=== PATIENT | female | born 1960 | race Caucasian/White ===

== ENCOUNTER 2024-09-07 07:07 | Inpatient (IN) | payer BC ==
[~2024-09-07] VITALS: Ht 167.6 cm; Wt 51.3 kg
[2024-09-07 07:56] LABS: BASOPHILS % 0.9 % (0.0-2.0); EOSINOPHILS % 2.1 % (0.0-5.0); HEMATOCRIT. 28.5 % (36.0-48.0); HEMOGLOBIN. 9.4 g/dL (12.0-16.0); LYMPHOCYTES % 11.6 % (20.0-50.0); MEAN CORPUSCULAR HEMOGLOBIN 31.9 pg (28.0-32.0); MEAN CORPUSCULAR HGB CONC 32.8 g/dL (31.0-37.0); MEAN CORPUSCULAR VOLUME 97.1 fL (81.0-99.0); MEAN PLATELET VOLUME 7.2 fl (7.4-10.4); MONOCYTES % 7.4 % (2.0-8.0); PLATELET 871 x1000/uL (130-400); RED BLOOD CELL COUNT 2.94 mill/uL (4.2-5.4); RED CELL DISTRIBUTION WIDTH 17.2 % (11.6-14.6); WHITE BLOOD COUNT 17.3 x1000/uL (4.5-11.0)
[2024-09-07 08:56] LABS: CHLORIDE 100 mEq/L (98-107); POTASSIUM 4.1 mEq/L (3.5-5.1); SODIUM 135 mEq/L (136-145)
[2024-09-07 08:57] LABS: CARBON DIOXIDE 28 mEq/L (21-32)
[2024-09-07 08:58] LABS: CALCIUM 10.4 mg/dL (8.7-10.4)
[2024-09-07 09:02] LABS: CREATININE 0.4 mg/dL (0.6-1.0)
[2024-09-07 09:03] LABS: GLUCOSE 124 mg/dL (70-105); TROPONIN I HIGH SENSITIVITY 8 ng/L (3.0-34); UREA NITROGEN BLOOD 19 mg/dL (9-23)
[2024-09-07] MEDS ORDERED: LEVOFLOXACIN 750MG PREMIX 150 ML IV ONE (09:15)
[2024-09-07] MEDS ORDERED: PIPERACILLIN/TAZO 3.375G/50ML 50 ML IV ONE (09:45)
[2024-09-07] MEDS: LEVOFLOXACIN 250MG PREMIX 50 ML IV SCH (09:53)
[2024-09-07] MEDS: SODIUM CHLORIDE 0.9% (SEPSIS BOLUS) IV ONE (10:01)
[2024-09-07] MEDS: ONDANSETRON HCL 4MG/2ML INJ IV ONE (10:10)
[2024-09-07] MEDS: MORPHINE SULFATE 4 MG/ML INJ (FOR IV/IM USE) IV STA (10:10)
[2024-09-07] MEDS: VANCOMYCIN 1G PREMIX 200 ML IV ONE (10:11)
[2024-09-07] MEDS: PIPERACILLIN/TAZO 3.375G/100ML IV NR (10:26)
[2024-09-07] MEDS ORDERED: PIPERACILLIN/TAZOBACTAM 3.375 G in DEXTROSE 5% WATER 50 ML IV SCH (11:00)
[2024-09-07] MEDS ORDERED: DOCUSATE SODIUM 100MG CAPSULE PO PRN (11:00)
[2024-09-07] MEDS ORDERED: IPRATROPIUM/ALBUTEROL 0.5-3(2.5)MG/3ML NEB HHN PRN (11:00)
[2024-09-07] MEDS ORDERED: ONDANSETRON HCL 4MG/2ML INJ IV PRN (11:00)
[2024-09-07] MEDS ORDERED: ACETAMINOPHEN 325MG TABLET PO PRN (11:00)
[2024-09-07] MEDS ORDERED: MAGNESIUM/ALUMINUM HYDROXIDE/SIMETHICONE 30ML UDC PO PRN (11:00)
[2024-09-07] MEDS ORDERED: CLONIDINE 0.1MG TABLET PO PRN (11:00)
[2024-09-07] MEDS ORDERED: NALOXONE HCL 0.4MG/ML VIAL IV PRN (11:45)
[2024-09-07] MEDS ORDERED: LEVETIRACETAM 500 MG in SODIUM CHLORIDE 0.9% 100 ML IV SCH (12:00)
[2024-09-07] MEDS: HYDROCODONE/ACETAMINOPHEN 5/325MG TABLET PO PRN (12:29)
[2024-09-07] MEDS ORDERED: GABAPENTIN 250 MG/5 ML PO SCH (13:00)
[2024-09-07] MEDS ORDERED: LEVETIRACETAM 500MG PREMIX 100ML IV ONE (13:00)
[2024-09-07 14:32] LABS: VITAMIN B12 SERUM 1921 pg/mL (211-911)
[2024-09-07 14:48] LABS: FOLIC ACID (FOLATE) SERUM > 20.00 ng/mL (>5.38)
[2024-09-07] MEDS ORDERED: BISACODYL 5MG TABLET PO PRN (15:00)
[2024-09-07] MEDS ORDERED: PANTOPRAZOLE 80 MG in SODIUM CHLORIDE 0.9% 100 ML IV SCH (15:00)
[2024-09-07 15:36] LABS: IRON 47 ug/dL (50-170)
[2024-09-07 15:38] LABS: TOTAL IRON BINDING CAPACITY 260 ug/dl (250-425)
[2024-09-07] MEDS: PIPERACILLIN/TAZO 3.375G/100ML IV SCH (16:00)
[2024-09-07] MEDS: SODIUM CHLORIDE 0.9% 1,000 ML IV SCH (16:54)
[2024-09-07] MEDS: LEVETIRACETAM 500MG PREMIX 100ML IV SCH (16:56)
[2024-09-07] MEDS: PANTOPRAZOLE SODIUM 40 MG/VIAL IV SCH (17:01)
[2024-09-07] MEDS: FERROUS SULFATE 325MG TABLET PO SCH (17:06)
[2024-09-07] MEDS: SUCRALFATE 1G TABLET PO SCH (17:06)
[2024-09-07 17:30] VITALS: BP 127/70; PULSE 130; RESP 20; TEMP 36.418
[2024-09-07] MEDS ORDERED: ACET-2128 MT (17:46)
[2024-09-07] MEDS ORDERED: CARB30DR OP (17:47)
[2024-09-07] MEDS ORDERED: THIJ IM (17:47)
[2024-09-07] MEDS ORDERED: METO25TA6 MT (17:47)
[2024-09-07] MEDS ORDERED: MELA3CAP2 PO (17:47)
[2024-09-07] MEDS ORDERED: ASCO-339 PO (17:47)
[2024-09-07] MEDS ORDERED: PANT40TA51 MT (17:47)
[2024-09-07] MEDS ORDERED: UBID200C37 PO (17:47)
[2024-09-07] MEDS ORDERED: BO1 TP (17:47)
[2024-09-07] MEDS ORDERED: CHRO1000 PO (17:47)
[2024-09-07] MEDS ORDERED: UBID50TA3 PO (17:47)
[2024-09-07] MEDS ORDERED: APIX2.5T MT (17:47)
[2024-09-07] MEDS ORDERED: ONDA-239 PO (17:47)
[2024-09-07] MEDS ORDERED: BIOT5000 MT (17:47)
[2024-09-07] MEDS ORDERED: GLUC1CAP8 PO (17:47)
[2024-09-07] MEDS ORDERED: SILV50CR31 TP (17:47)
[2024-09-07] MEDS ORDERED: TURM500T (17:47)
[2024-09-07] MEDS ORDERED: MIRT-90 MT (17:47)
[2024-09-07] MEDS ORDERED: SENN8.8S8 MT (17:47)
[2024-09-07] MEDS ORDERED: DIPH25CA51 (17:47)
[2024-09-07] MEDS ORDERED: GABA-529 PO (17:47)
[2024-09-07] MEDS ORDERED: SELE200C MT (17:47)
[2024-09-07] MEDS ORDERED: [UNRECOGNIZED DRUG - CODE] PO (17:47)
[2024-09-07] MEDS ORDERED: [UNRECOGNIZED DRUG - CODE] PO (17:47)
[2024-09-07] MEDS ORDERED: FOLI-43 MT (17:47)
[2024-09-07] MEDS ORDERED: ASTA4CAP PO (17:47)
[2024-09-07] MEDS ORDERED: BISA10SU62 RC (17:47)
[2024-09-07] MEDS ORDERED: OXYB5SYR6 PO (17:47)
[2024-09-07] MEDS ORDERED: EZET10TA81 MT (17:47)
[2024-09-07] MEDS ORDERED: UPAD30TA PO (17:47)
[2024-09-07] MEDS ORDERED: VALA500T55 MT (17:47)
[2024-09-07] MEDS ORDERED: LEVE750T10 PO (17:47)
[2024-09-07] MEDS: AZITHROMYCIN 500 MG in DEXT 5% WATER 250 ML IV SCH (18:58)
[2024-09-07 20:00] VITALS: BP 97/58; PULSE 127; RESP 21; TEMP 36.61404; O2SAT 97
[2024-09-07] MEDS: MIRTAZAPINE 15MG TABLET PO SCH (21:47)
[2024-09-07] MEDS ORDERED: MIRTAZAPINE 30MG TABLET PO SCH (22:00)
[2024-09-08] VITALS: BP 103/53; PULSE 86; RESP 20; TEMP 36.28068; O2SAT 100
[2024-09-08] MEDS: VANCOMYCIN 1GM/200ML PMX (BAXTER) IV SCH ×2 (02:06→19:24)
[2024-09-08 04:00] VITALS: BP 97/56; PULSE 126; RESP 19; TEMP 36.44736; O2SAT 98
[2024-09-08 06:02] LABS: CHLORIDE 103 mEq/L (98-107); SODIUM 136 mEq/L (136-145)
[2024-09-08 06:03] LABS: CALCIUM 9.6 mg/dL (8.7-10.4); CARBON DIOXIDE 24 mEq/L (21-32)
[2024-09-08 06:08] LABS: ALBUMIN 3.4 g/dL (3.2-4.8); CREATININE 0.4 mg/dL (0.6-1.0); GLUCOSE 87 mg/dL (70-105); THYROID STIMULATING HORMONE 2.39 uIU/mL (0.55-4.78); TRIGLYCERIDE 242 mg/dL (0-150); UREA NITROGEN BLOOD 13 mg/dL (9-23)
[2024-09-08 06:09] LABS: LDL CHOLESTEROL 67 mg/dL (5-100)
[2024-09-08 06:10] LABS: CHOLESTEROL 138 mg/dL (<200); HDL CHOLESTEROL 21 mg/dL (>65)
[2024-09-08 06:38] LABS: INR 1.1; PARTIAL THROMBOPLASTIN TIME 28.7 sec (23.4-31.0); PROTHROMBIN TIME 11.7 sec (9.6-11.0)
[2024-09-08 07:31] LABS: HEMATOCRIT. 25.6 % (36.0-48.0); MEAN CORPUSCULAR HEMOGLOBIN 31.2 pg (28.0-32.0); MEAN CORPUSCULAR HGB CONC 31.2 g/dL (31.0-37.0); MEAN PLATELET VOLUME 7.7 fl (7.4-10.4); PLATELET 791 x1000/uL (130-400); RED BLOOD CELL COUNT 2.56 mill/uL (4.2-5.4); RED CELL DISTRIBUTION WIDTH 16.4 % (11.6-14.6); WHITE BLOOD COUNT 19.7 x1000/uL (4.5-11.0)
[2024-09-08 08:00] VITALS: BP 107/62; PULSE 116; RESP 20; TEMP 36.55848; O2SAT 97
[2024-09-08 08:27] LABS: DIFFERENTIAL COMMENT 1
[2024-09-08] MEDS ORDERED: PANTOPRAZOLE SODIUM 40 MG/VIAL IV SCH (09:00)
[2024-09-08] MEDS: POLYETHYLENE GLYCOL 3350 (17GM) 1 DOSE PACK PO SCH (11:35)
[2024-09-08] MEDS: LEVOTHYROXINE SODIUM 75MCG TABLET PO SCH (11:35)
[2024-09-08 12:00] VITALS: BP 103/53; PULSE 113; RESP 19; TEMP 36.50292; O2SAT 98
[2024-09-08] MEDS: GABAPENTIN SOLN 300MG/6ML UDC PO SCH (13:00)
[2024-09-08 16:00] VITALS: BP 117/67; PULSE 67; RESP 18; TEMP 36.78072; O2SAT 99
[2024-09-08 17:57] LABS: PLATELET ESTIMATE INCREASED
[2024-09-08 20:00] VITALS: BP 124/60; PULSE 73; RESP 19; TEMP 36.3918; O2SAT 100
[2024-09-08] MEDS: GUAIFENESIN 200MG/10ML SUGAR FREE UDC PO PRN (20:25)
[2024-09-08] MEDS: ACETAMINOPHEN 325MG TABLET PO PRN (20:26)
[2024-09-08] MEDS: ATORVASTATIN CALCIUM 10MG TABLET PO SCH (21:05)
[2024-09-09] VITALS: BP 122/63; PULSE 100; RESP 20; TEMP 36.50292; O2SAT 99
[2024-09-09 04:00] VITALS: BP 126/61; PULSE 110; RESP 20; TEMP 36.28068; O2SAT 99
[2024-09-09 08:00] VITALS: BP 118/68; PULSE 100; RESP 16; TEMP 36.16956; O2SAT 95
[2024-09-09] MEDS ORDERED: LIDOCAINE HCL 1% 10 MG/ML 10ML VIAL ONE (11:25)
[2024-09-09 12:00] VITALS: BP 125/67; PULSE 97; RESP 18; TEMP 36.44736; O2SAT 98
[2024-09-09 16:00] VITALS: BP 130/79; PULSE 89; RESP 20; TEMP 36.33624; O2SAT 97
[2024-09-09 20:00] VITALS: BP 124/73; PULSE 69; RESP 19; TEMP 36.22512; O2SAT 98
[2024-09-09 21:11] LABS: CHLORIDE 106 mEq/L (98-107); POTASSIUM 3.5 mEq/L (3.5-5.1); SODIUM 136 mEq/L (136-145)
[2024-09-09] MEDS: VANCOMYCIN 1GM/200ML PMX (BAXTER) IV SCH (21:11)
[2024-09-09 21:12] LABS: CALCIUM 9.2 mg/dL (8.7-10.4); CARBON DIOXIDE 23 mEq/L (21-32)
[2024-09-09 21:17] LABS: CREATININE 0.4 mg/dL (0.6-1.0); GLUCOSE 128 mg/dL (70-105); UREA NITROGEN BLOOD 7 mg/dL (9-23)
[2024-09-09 21:25] LABS: BASOPHILS % 0.4 % (0.0-2.0); EOSINOPHILS % 8.8 % (0.0-5.0); HEMATOCRIT 21.6 % (36.0-48.0); HEMATOCRIT. 21.6 % (36.0-48.0); LYMPHOCYTES % 5.7 % (20.0-50.0); MEAN CORPUSCULAR HEMOGLOBIN 30.3 pg (28.0-32.0); MEAN CORPUSCULAR VOLUME 97.9 fL (81.0-99.0); MONOCYTES % 5.7 % (2.0-8.0); NEUTROPHILS % 79.4 % (40.0-76.0); PLATELET 638 x1000/uL (130-400); RED BLOOD CELL COUNT 2.21 mill/uL (4.2-5.4); RED CELL DISTRIBUTION WIDTH 16.6 % (11.6-14.6); WHITE BLOOD COUNT 16.1 x1000/uL (4.5-11.0)
[2024-09-09 21:37] LABS: DIFFERENTIAL COMMENT 1
[2024-09-09 21:38] LABS: HEMOGLOBIN 6.7 g/dL (12.0-16.0); HEMOGLOBIN. 6.7 g/dL (12.0-16.0)
[2024-09-09] MEDS: GABAPENTIN 250 MG/5 ML PO SCH (21:41)
[2024-09-10] VITALS (10 sets, daily range): BP systolic 118–159; BP diastolic 66–84; PULSE 58–110; RESP 16–20; TEMP 35.94732–36.6696; O2SAT 96–100
[2024-09-10 08:02] LABS: CARBON DIOXIDE 21 mEq/L (21-32); CHLORIDE 108 mEq/L (98-107); POTASSIUM 3.6 mEq/L (3.5-5.1); SODIUM 139 mEq/L (136-145)
[2024-09-10 08:03] LABS: CALCIUM 9.8 mg/dL (8.7-10.4)
[2024-09-10 08:07] LABS: CREATININE 0.3 mg/dL (0.6-1.0); GLUCOSE 93 mg/dL (70-105)
[2024-09-10 08:08] LABS: UREA NITROGEN BLOOD 5 mg/dL (9-23)
[2024-09-10 08:28] LABS: HEMATOCRIT. 31.7 % (36.0-48.0); HEMOGLOBIN. 10.5 g/dL (12.0-16.0); MEAN CORPUSCULAR HEMOGLOBIN 31.2 pg (28.0-32.0); MEAN CORPUSCULAR VOLUME 94.5 fL (81.0-99.0); MEAN PLATELET VOLUME 7.2 fl (7.4-10.4); PLATELET 601 x1000/uL (130-400); RED BLOOD CELL COUNT 3.35 mill/uL (4.2-5.4); RED CELL DISTRIBUTION WIDTH 17.1 % (11.6-14.6); WHITE BLOOD COUNT 17.5 x1000/uL (4.5-11.0)
[2024-09-10 08:31] LABS: DIFFERENTIAL COMMENT 1
[2024-09-10 20:50] LABS: ANISOCYTOSIS 1+; PLATELET ESTIMATE SLIGHTLY INCREASED
[2024-09-11] VITALS: BP 142/75; PULSE 85; RESP 18; TEMP 36.33624; O2SAT 98
[2024-09-11 04:00] VITALS: BP 148/79; PULSE 96; RESP 18; TEMP 36.16956; O2SAT 98
[2024-09-11] MEDS: VANCOMYCIN 1.25GM PMX (XELLIA) 250 ML IV SCH (06:45)
[2024-09-11 08:00] VITALS: BP 120/74; PULSE 67; RESP 18; TEMP 36.61404; O2SAT 97
[2024-09-11 16:00] VITALS: BP 114/68; PULSE 74; RESP 20; TEMP 36.6696; O2SAT 98
[2024-09-11 20:00] VITALS: BP 127/69; PULSE 106; RESP 18; TEMP 36.78072; O2SAT 99
[2024-09-12] VITALS: BP 143/82; PULSE 110; RESP 18; TEMP 37.00296; O2SAT 97
[2024-09-12] MEDS ORDERED: AMITRIPTYLINE 25MG TABLET PO SCH (01:30)
[2024-09-12] MEDS: AMITRIPTYLINE 25MG TABLET PO SCH (02:04)
[2024-09-12 04:00] VITALS: RESP 18
[2024-09-12] MEDS: PIPERACILLIN/TAZO 3.375G/50ML IV SCH (06:47)
[2024-09-12 08:00] VITALS: BP 156/96; PULSE 116; RESP 18; TEMP 36.05844; O2SAT 97
[2024-09-12 08:33] LABS: CHLORIDE 111 mEq/L (98-107); POTASSIUM 3.3 mEq/L (3.5-5.1); SODIUM 142 mEq/L (136-145)
[2024-09-12 08:34] LABS: CALCIUM 9.5 mg/dL (8.7-10.4); CARBON DIOXIDE 23 mEq/L (21-32)
[2024-09-12 08:39] LABS: GLUCOSE 98 mg/dL (70-105); UREA NITROGEN BLOOD 7 mg/dL (9-23)
[2024-09-12 08:43] LABS: BASOPHILS % 0.6 % (0.0-2.0); EOSINOPHILS % 7.4 % (0.0-5.0); HEMATOCRIT. 30.8 % (36.0-48.0); HEMOGLOBIN. 10.4 g/dL (12.0-16.0); LYMPHOCYTES % 8.6 % (20.0-50.0); MEAN CORPUSCULAR HEMOGLOBIN 31.3 pg (28.0-32.0); MEAN CORPUSCULAR HGB CONC 33.8 g/dL (31.0-37.0); MEAN CORPUSCULAR VOLUME 92.8 fL (81.0-99.0); MEAN PLATELET VOLUME 6.8 fl (7.4-10.4); MONOCYTES % 7.9 % (2.0-8.0); NEUTROPHILS % 75.5 % (40.0-76.0); PLATELET 442 x1000/uL (130-400); RED BLOOD CELL COUNT 3.33 mill/uL (4.2-5.4); RED CELL DISTRIBUTION WIDTH 17.9 % (11.6-14.6); WHITE BLOOD COUNT 18.9 x1000/uL (4.5-11.0)
[2024-09-12 09:51] LABS: CREATININE 0.4 mg/dL (0.6-1.0)
[2024-09-12 12:09] VITALS: BP 128/79; PULSE 109; RESP 18; TEMP 36.61404; O2SAT 98
[2024-09-12] MEDS: HYDROCODONE/ACETAMINOPHEN 5/325MG TABLET PO PRN (13:45)
[2024-09-12 16:00] VITALS: BP 148/83; PULSE 112; RESP 18; TEMP 37.05852; O2SAT 98
[2024-09-12 20:00] VITALS: BP 136/72; PULSE 109; RESP 20; TEMP 36.28068; O2SAT 94
[2024-09-12] MEDS: MELATONIN 3MG TABLET PO SCH (21:26)
[2024-09-13] VITALS: BP 146/80; PULSE 113; RESP 20; TEMP 36.22512; O2SAT 93
[2024-09-13 04:00] VITALS: BP 148/77; PULSE 112; RESP 20; TEMP 36.114; O2SAT 93
[2024-09-13 07:14] LABS: CHLORIDE 109 mEq/L (98-107); POTASSIUM 2.9 mEq/L (3.5-5.1); SODIUM 143 mEq/L (136-145)
[2024-09-13 07:15] LABS: CARBON DIOXIDE 23 mEq/L (21-32)
[2024-09-13 07:20] LABS: CREATININE 0.3 mg/dL (0.6-1.0); GLUCOSE 96 mg/dL (70-105)
[2024-09-13 07:21] LABS: UREA NITROGEN BLOOD 11 mg/dL (9-23)
[2024-09-13 08:00] VITALS: BP 141/84; PULSE 105; RESP 18; TEMP 36.61404; O2SAT 96
[2024-09-13 08:12] LABS: BASOPHILS % 0.7 % (0.0-2.0); HEMATOCRIT. 27.4 % (36.0-48.0); HEMOGLOBIN. 8.9 g/dL (12.0-16.0); LYMPHOCYTES % 8.8 % (20.0-50.0); MEAN CORPUSCULAR HEMOGLOBIN 30.8 pg (28.0-32.0); MEAN CORPUSCULAR HGB CONC 32.6 g/dL (31.0-37.0); MEAN CORPUSCULAR VOLUME 94.5 fL (81.0-99.0); MONOCYTES % 7.6 % (2.0-8.0); NEUTROPHILS % 74.9 % (40.0-76.0); PLATELET 387 x1000/uL (130-400); RED CELL DISTRIBUTION WIDTH 18.1 % (11.6-14.6); WHITE BLOOD COUNT 16.4 x1000/uL (4.5-11.0)
[2024-09-13] MEDS: KCL 20MEQ/100ML PREMIX 100 ML IV SCH (11:19)
[2024-09-13 12:25] VITALS: BP 140/74; PULSE 106; RESP 20; TEMP 36.05844; O2SAT 96
[2024-09-13 15:24] LABS: HEMATOCRIT 31.4 % (36.0-48.0); HEMOGLOBIN 10.2 g/dL (12.0-16.0)
[2024-09-13 16:33] VITALS: BP 148/85; PULSE 115; RESP 18; TEMP 36.44736; O2SAT 95
[2024-09-13 20:00] VITALS: BP 148/83; PULSE 111; RESP 20; TEMP 36.28068; O2SAT 95
[2024-09-13] MEDS: GABAPENTIN SOLN 300MG/6ML UDC PO SCH (21:54)
[2024-09-14] VITALS: BP 157/90; PULSE 107; RESP 20; TEMP 36.16956; O2SAT 100
[2024-09-14 04:00] VITALS: BP 153/95; PULSE 95; RESP 20; TEMP 36.33624; O2SAT 95
[2024-09-14 07:58] LABS: BASOPHILS % 0.6 % (0.0-2.0); EOSINOPHILS % 10.8 % (0.0-5.0); HEMOGLOBIN. 10.2 g/dL (12.0-16.0); LYMPHOCYTES % 10.4 % (20.0-50.0); MEAN CORPUSCULAR HEMOGLOBIN 31.8 pg (28.0-32.0); MEAN CORPUSCULAR VOLUME 93.6 fL (81.0-99.0); MEAN PLATELET VOLUME 7.4 fl (7.4-10.4); MONOCYTES % 7.9 % (2.0-8.0); NEUTROPHILS % 70.3 % (40.0-76.0); PLATELET 390 x1000/uL (130-400); RED CELL DISTRIBUTION WIDTH 17.8 % (11.6-14.6); WHITE BLOOD COUNT 16.3 x1000/uL (4.5-11.0)
[2024-09-14 08:00] VITALS: O2SAT 93
[2024-09-14 08:24] LABS: ALANINE AMINOTRANSFERASE < 7 IU/L (10-49); ALBUMIN 3.1 g/dL (3.2-4.8); ASPARTATE AMINOTRANSFERASE 9 IU/L (<34); BILIRUBIN TOTAL 0.2 mg/dL (0.1-1.0); PROTEIN TOTAL 5.4 g/dL (6.0-8.3)
[2024-09-14 08:42] LABS: BILIRUBIN DIRECT < 0.1 mg/dL (<=3.0)
[2024-09-14] MEDS: PIPERACILLIN/TAZO 3.375G/50ML 50 ML IV SCH (08:50)
[2024-09-14 12:00] VITALS: BP 148/90; PULSE 93; RESP 20; TEMP 36.00288; O2SAT 97
[2024-09-14 12:30] LABS: CHLORIDE 108 mEq/L (98-107); POTASSIUM 3.5 mEq/L (3.5-5.1); SODIUM 141 mEq/L (136-145)
[2024-09-14 12:31] LABS: CALCIUM 9.9 mg/dL (8.7-10.4); CARBON DIOXIDE 25 mEq/L (21-32)
[2024-09-14 12:36] LABS: CREATININE 0.3 mg/dL (0.6-1.0); GLUCOSE 101 mg/dL (70-105); UREA NITROGEN BLOOD 10 mg/dL (9-23)
[2024-09-14 16:00] VITALS: BP 152/90; PULSE 110; RESP 20; TEMP 36.114; O2SAT 98
[2024-09-14 20:00] VITALS: BP 119/89; PULSE 75; RESP 19; TEMP 36.22512; O2SAT 98
[2024-09-14] MEDS: DIPHENHYDRAMINE 50MG/ML VIAL IV PRN (22:44)
[2024-09-15] VITALS (7 sets, daily range): BP systolic 127–172; BP diastolic 55–97; PULSE 60–118; RESP 18–20; TEMP 35.78064–36.50292; O2SAT 93–100
[2024-09-15 17:29] LABS: HEMATOCRIT. 30.2 % (36.0-48.0); HEMOGLOBIN. 9.8 g/dL (12.0-16.0); MEAN CORPUSCULAR HEMOGLOBIN 30.4 pg (28.0-32.0); MEAN CORPUSCULAR HGB CONC 32.4 g/dL (31.0-37.0); MEAN CORPUSCULAR VOLUME 93.6 fL (81.0-99.0); MEAN PLATELET VOLUME 7.9 fl (7.4-10.4); PLATELET 382 x1000/uL (130-400); RED BLOOD CELL COUNT 3.23 mill/uL (4.2-5.4); RED CELL DISTRIBUTION WIDTH 17.6 % (11.6-14.6); WHITE BLOOD COUNT 21.3 x1000/uL (4.5-11.0)
[2024-09-15 17:30] LABS: DIFFERENTIAL COMMENT 1
[2024-09-15 17:43] LABS: CHLORIDE 104 mEq/L (98-107); POTASSIUM 3.6 mEq/L (3.5-5.1); SODIUM 137 mEq/L (136-145)
[2024-09-15 17:44] LABS: CARBON DIOXIDE 25 mEq/L (21-32)
[2024-09-15 17:49] LABS: GLUCOSE 112 mg/dL (70-105); UREA NITROGEN BLOOD 13 mg/dL (9-23)
[2024-09-15 17:53] LABS: CREATININE 0.4 mg/dL (0.6-1.0)
[2024-09-15 20:06] LABS: ANISOCYTOSIS 1+; PLATELET ESTIMATE NORMAL
[2024-09-16 00:10] VITALS: BP_SYST 134; BP_SYST 154; BP_DIAS 74; BP_DIAS 80; PULSE 106; PULSE 107; RESP 20; TEMP 36.22512; TEMP 36.50292; O2SAT 93; O2SAT 97
[2024-09-16 04:00] VITALS: BP 164/92; PULSE 116; RESP 20; TEMP 36.114; O2SAT 100
[2024-09-16 12:41] VITALS: BP 122/68; PULSE 98; RESP 20; TEMP 36.114; O2SAT 96
[2024-09-16] MEDS ORDERED: APIX2.5T MT (15:42)
[2024-09-16] MEDS ORDERED: [UNRECOGNIZED DRUG - CODE] PO (15:42)
[2024-09-16] MEDS ORDERED: MELA3CAP2 PO (15:42)
[2024-09-16] MEDS ORDERED: ASCO-339 PO (15:42)
[2024-09-16] MEDS ORDERED: LEVE750T10 PO (15:42)
[2024-09-16] MEDS ORDERED: METO25TA6 MT (15:42)
[2024-09-16] MEDS ORDERED: MIRT-90 MT (15:42)
[2024-09-16] MEDS ORDERED: GABA-529 PO (15:42)
[2024-09-16] MEDS ORDERED: VALA500T55 MT (15:42)
[2024-09-16] MEDS ORDERED: ATOR10TA PO (15:42)
[2024-09-16] MEDS ORDERED: FOLI-43 MT (15:42)
[2024-09-16] MEDS ORDERED: LEVO75TA7 PO (15:42)
[2024-09-16 16:27] LABS: BASOPHILS % 0.9 % (0.0-2.0); EOSINOPHILS % 8.6 % (0.0-5.0); HEMATOCRIT. 29.8 % (36.0-48.0); HEMOGLOBIN. 9.5 g/dL (12.0-16.0); LYMPHOCYTES % 8.1 % (20.0-50.0); MEAN CORPUSCULAR HEMOGLOBIN 30.2 pg (28.0-32.0); MEAN CORPUSCULAR VOLUME 94.5 fL (81.0-99.0); MONOCYTES % 6.3 % (2.0-8.0); NEUTROPHILS % 76.1 % (40.0-76.0); PLATELET 416 x1000/uL (130-400); RED BLOOD CELL COUNT 3.16 mill/uL (4.2-5.4); RED CELL DISTRIBUTION WIDTH 17.3 % (11.6-14.6); WHITE BLOOD COUNT 18.1 x1000/uL (4.5-11.0)
[2024-09-16 16:33] LABS: CHLORIDE 106 mEq/L (98-107); POTASSIUM 3.6 mEq/L (3.5-5.1); SODIUM 139 mEq/L (136-145)
[2024-09-16 16:34] LABS: CARBON DIOXIDE 23 mEq/L (21-32)
[2024-09-16 16:39] LABS: CREATININE 0.4 mg/dL (0.6-1.0); GLUCOSE 121 mg/dL (70-105)
[2024-09-16 16:40] LABS: UREA NITROGEN BLOOD 13 mg/dL (9-23)
[2024-09-16 16:44] VITALS: BP 137/71; PULSE 75; RESP 18; TEMP 37.16964; O2SAT 96
[2024-09-16 20:00] VITALS: BP 127/79; PULSE 116; RESP 18; TEMP 36.33624; O2SAT 97
[2024-09-17] VITALS (7 sets, daily range): BP systolic 141–150; BP diastolic 78–89; PULSE 48–122; RESP 18–20; TEMP 36.05844–37.39188; O2SAT 95–100
[2024-09-17 06:27] LABS: BASOPHILS % 0.9 % (0.0-2.0); EOSINOPHILS % 10.2 % (0.0-5.0); HEMATOCRIT. 29.5 % (36.0-48.0); LYMPHOCYTES % 8.9 % (20.0-50.0); MEAN CORPUSCULAR HEMOGLOBIN 31.6 pg (28.0-32.0); MEAN CORPUSCULAR HGB CONC 33.9 g/dL (31.0-37.0); MEAN CORPUSCULAR VOLUME 93.1 fL (81.0-99.0); MEAN PLATELET VOLUME 7.9 fl (7.4-10.4); MONOCYTES % 8.2 % (2.0-8.0); NEUTROPHILS % 71.8 % (40.0-76.0); PLATELET 422 x1000/uL (130-400); RED BLOOD CELL COUNT 3.17 mill/uL (4.2-5.4); RED CELL DISTRIBUTION WIDTH 16.7 % (11.6-14.6); WHITE BLOOD COUNT 16.2 x1000/uL (4.5-11.0)
[2024-09-18] VITALS: BP 147/63; PULSE 100; RESP 18; TEMP 36.50292; O2SAT 97
== END 2024-09-17 22:18 | disposition home or self-care (01) | DRG 853 ==
LOC: ER 07:14 → EDBEDREQ 08:06 → 7WST 15:41
PROVIDERS: ADMIT Internal Medicine; ATTEND Internal Medicine
PROC: 02HV33Z Insertion of Infusion Device into Superior Vena Cava, Percutaneous Approach (ICD-10-PCS; 2024-09-09)
PROC: B5181ZA Fluoroscopy of Superior Vena Cava using Low Osmolar Contrast, Guidance (ICD-10-PCS; 2024-09-09)
PROC: B548ZZA Ultrasonography of Superior Vena Cava, Guidance (ICD-10-PCS; 2024-09-09)
PROC: 30233N1 Transfusion of Nonautologous Red Blood Cells into Peripheral Vein, Percutaneous Approach (ICD-10-PCS; 2024-09-10)
PROC: 0JB80ZZ Excision of Abdomen Subcutaneous Tissue and Fascia, Open Approach (ICD-10-PCS; principal; 2024-09-12)
DX: A41.9 Sepsis, unspecified organism (principal); J69.0 Pneumonitis due to inhalation of food and vomit; K92.2 Gastrointestinal hemorrhage, unspecified; E87.1 Hypo-osmolality and hyponatremia; J90 Pleural effusion, not elsewhere classified; M48.54XA Collapsed vertebra, not elsewhere classified, thoracic region, initial encounter for fracture; Z20.822 Contact with and (suspected) exposure to COVID-19; G40.909 Epilepsy, unspecified, not intractable, without status epilepticus; K21.9 Gastro-esophageal reflux disease without esophagitis; D63.8 Anemia in other chronic diseases classified elsewhere; D75.838 Other thrombocytosis; F41.9 Anxiety disorder, unspecified; I10 Essential (primary) hypertension; S31.109A Unspecified open wound of abdominal wall, unspecified quadrant without penetration into peritoneal cavity, initial encounter; D86.9 Sarcoidosis, unspecified; E03.9 Hypothyroidism, unspecified; E61.1 Iron deficiency; Z86.73 Personal history of transient ischemic attack (TIA), and cerebral infarction without residual deficits; Z86.718 Personal history of other venous thrombosis and embolism; Z79.899 Other long term (current) drug therapy; Z79.01 Long term (current) use of anticoagulants; Z90.49 Acquired absence of other specified parts of digestive tract; Z98.84 Bariatric surgery status; X58.XXXA Exposure to other specified factors, initial encounter; Y93.89 Activity, other specified; Y92.89 Other specified places as the place of occurrence of the external cause; Y99.8 Other external cause status
CPT/HCPCS: 36415; 36573; 71045; 74176; 80048; 80061; 80076; 80202; 82040; 82248; 82270; 82607; 82728; 82746; 83540; 83550; 83880; 84145; 84443; 84484; 85014; 85018; 85025; 85027; 85044; 86850; 86900; 86920; 87426; 87804; 93005; 99291; A4606; C1725; J0456; J1200; J1953; J1956; J2003; J2270; J2405; J2470; J2543; J3370; J3480; J7030; J7050; J7060; P9016